=== PATIENT | male | born 1935 | race Caucasian/White ===

== ENCOUNTER → 2020-10-03 | Outpatient (REF) | payer OTHER, BC ==
[~2020-10-03] MED LIST: ADMELOG SO100 UNIT/1 SQ; ALDACTONE 25MG25 M1 PO; APRESOLINE50 MG PO; ASPIRIN E.C. 8181 MG PO; ATROVENT I0.2 MG/1 M IH; CARDURA 2MG2 MG PO; COLACE 100100 MG/CAP PO; CYANOCOBAL1000 MCG/M IM; DESYREL 50MG50 MG PO; DIABETA 5MG5 MG/TAB PO; GLUCOPHAGE850 MG/TAB PO; HUMALOG100 U/ML SQ; HYDRODIURIL50 MG PO; LANTUS100 U/ML SQ; LASIX 40MG TABL40 MG PO; LEVAQUIN 750MG750 M1 PO; LIPITOR 40MG TA40 MG PO; LOPID 600M600 MG/TAB PO; MIRALAX PA17 GM/Dose PO; MUCINEX1200 MG PO; MULTIPLE VITAMI1 TA5 PO; NATURE'S BLEND M3 MG PO; NORVASC 10MG10 MG PO; PRILOSEC 20MG20 MG PO; PROTONIX 40MG T40 MG PO; ZINC OXIDE56.7 GM TP; ZYPREXA 5MG5 MG PO; ZYPREXA2.5 MG PO
[2020-10-03 12:47] LABS: BASO # 0.1 (0.0-0.2); BASO % 0.6 % (0.0-2.0); EOS # 0.2 (0.0-0.7); EOS % 1.8 % (0-4.0); GRAN # 7.6 (1.4-6.5); GRAN % 69.4 % (42.2-75.2); LYMPH # 2.4 (1.2-3.4); LYMPH % 21.4 % (20.0-51.0); MEAN CELL VOLUME 85 fl (80.0-100.0); MEAN CORPUSCULAR HGB CONC 31 g/dl (33.0-37.0); MEAN PLATELET VOLUME 11.8 fl (7.4-10.4); MONO # 0.7 (0.1-0.6); MONO % 6.3 % (1.7-9.3); PLATELET COUNT 299 K/mm3 (130-400); RED BLOOD COUNT 3.54 M/mm3 (4.20-5.60); REDCELL DISTRIBUTION WIDTH-CV 15.3 % (11.5-14.5)
[2020-10-03 12:48] LABS: HEMATOCRIT 30.1 % (42.0-52.0); HEMOGLOBIN 9.2 g/dl (13.5-18.0); MEAN CORPUSCULAR HEMOGLOBIN 26 pg (27.0-31.0)
[2020-10-03 12:53] LABS: CALCIUM 8.2 mg/dL (8.4-10.2); CREATININE, serum 1.75 (0.66-1.25); POTASSIUM 3.7 mmol/L (3.4-5.0)
== END ==
LOC: ZCOL.LAB 12:27
PROVIDERS: Internal Medicine
DX: R30.0 Dysuria (principal); I44.1 Atrioventricular block, second degree; I48.91 Unspecified atrial fibrillation; I50.9 Heart failure, unspecified; D62 Acute posthemorrhagic anemia

== ENCOUNTER 2020-10-12 10:35 | Inpatient (IN) | payer MEDICARE, BC ==
[2020-10-12] VITALS (143 sets, daily range): BP systolic 181; BP diastolic 77; PULSE 85; TEMP 98.1; O2SAT 73–100
[~2020-10-12] VITALS: Ht 177.8 cm; Wt 90.4 kg
[2020-10-12 11:06] LABS: BASO % 0.4 % (0.0-2.0); EOS # 0.2 (0.0-0.7); EOS % 2.1 % (0-4.0); GRAN # 6.3 (1.4-6.5); GRAN % 70.1 % (42.2-75.2); LYMPH # 1.7 (1.2-3.4); LYMPH % 18.5 % (20.0-51.0); MEAN CELL VOLUME 85 fl (80.0-100.0); MEAN CORPUSCULAR HGB CONC 30 g/dl (33.0-37.0); MEAN PLATELET VOLUME 11.1 fl (7.4-10.4); MONO # 0.8 (0.1-0.6); MONO % 8.5 % (1.7-9.3); PLATELET COUNT 217 K/mm3 (130-400); RED BLOOD COUNT 3.51 M/mm3 (4.20-5.60); REDCELL DISTRIBUTION WIDTH-CV 15.7 % (11.5-14.5)
[2020-10-12 11:07] LABS: HEMATOCRIT 29.8 % (42.0-52.0); HEMOGLOBIN 8.9 g/dl (13.5-18.0); MEAN CORPUSCULAR HEMOGLOBIN 25 pg (27.0-31.0)
[2020-10-12 11:13] LABS: INR 1.3 (0.8-3.0); PROTHROMBIN TIME 14.5 SECONDS (9.7-12.8)
[2020-10-12 11:16] LABS: ALBUMIN 3.1 gm/dL (3.5-5.0); BILIRUBIN,TOTAL 0.3 mg/dL (0.0-1.0); CALCIUM 8.1 mg/dL (8.4-10.2); CREATININE, serum 1.93 (0.66-1.25); POTASSIUM 3.3 mmol/L (3.4-5.0); TOTAL PROTEIN 6.2 gm/dL (6.4-8.2)
[2020-10-12 11:29] LABS: TROPONIN-I 2.38 ng/mL (0.000-0.035)
[2020-10-12 11:57] LABS: ARTERIAL BLD GAS O2 SATURATION 93.9 % (92-100); ARTERIAL BLD GAS TCO2 CT 23.8; ARTERIAL BLOOD GAS BASE EXCESS -1.3 (-2-2); ARTERIAL BLOOD GAS HCO3 22.7 meq/L (22-26); ARTERIAL BLOOD GAS PCO2 35.4 mmHg (35-45); ARTERIAL BLOOD GAS PO2 72.2 mmHg (80-100); ARTERIAL BLOOD GAS pH 7.43 (7.35-7.45)
[2020-10-12 12:08] LABS: COLLECTION METHOD CLEAN CATCH
[2020-10-12 12:14] LABS: PH 5 (5-8); SQUAMOUS EPITHELIAL None Seen /hpf; URINE APPEARANCE Clear; URINE BACTERIA None Seen /hpf; URINE BILIRUBIN Negative (NEGATIVE); URINE BLOOD Negative (NEGATIVE); URINE COLOR Yellow; URINE GLUCOSE Negative (NEGATIVE); URINE KETONE Negative (NEGATIVE); URINE LEUKOCYTE ESTERASE Negative (NEGATIVE); URINE NITRATE Negative (NEGATIVE); URINE PROTEIN(semi-quant) Negative (NEGATIVE); URINE RBC 0-2 /hpf; URINE UROBILINOGEN Negative (NEGATIVE)
[2020-10-12] MEDS ORDERED: MUCINEX1200 MG PO (13:57)
[2020-10-12] MEDS ORDERED: COLACE 100100 MG/CAP PO (13:57)
[2020-10-12] MEDS ORDERED: ALDACTONE 25MG25 M1 PO (13:57)
[2020-10-12] MEDS ORDERED: APRESOLINE50 MG PO (13:58)
[2020-10-12] MEDS ORDERED: CARDURA 2MG2 MG PO (13:58)
[2020-10-12] MEDS ORDERED: ZYPREXA 5MG5 MG PO (13:58)
[2020-10-12] MEDS ORDERED: ADMELOG SO100 UNIT/1 SQ (13:58)
[2020-10-12] MEDS ORDERED: LASIX 40MG TABL40 MG PO (13:58)
[2020-10-12] MEDS ORDERED: DESYREL 50MG50 MG PO (13:58)
[2020-10-12] MEDS ORDERED: ASPIRIN E.C. 8181 MG PO (13:59)
[2020-10-12] MEDS ORDERED: NATURE'S BLEND M3 MG PO (13:59)
[2020-10-12] MEDS ORDERED: PROTONIX 40MG T40 MG PO (13:59)
[2020-10-12] MEDS ORDERED: ZYPREXA2.5 MG PO (13:59)
[2020-10-12] MEDS ORDERED: LIPITOR 40MG TA40 MG PO (13:59)
--- NOTE | 2020-10-12 14:22 | NUR ---
Initial visit; Patient and his in Emergency Services. Patient requested prayer. [id number] Analyst offered comfort and prayer for Hitesh and Daniela.
[2020-10-12] MEDS ORDERED: LANTUS100 U/ML SQ (16:02)
[2020-10-12] MEDS ORDERED: HUMALOG100 U/ML SQ (16:02)
[2020-10-12] MEDS ORDERED: ZINC OXIDE56.7 GM TP (16:03)
--- NOTE | 2020-10-12 18:00 | NUR ---
NOTIFIED DR. PRATT OF [facility] AND OF PATIENT'S COMPLAINTS OF MUSCLE SPASMS. ORDERS RECEIVED.
[2020-10-12] MEDS ORDERED: LEVAQUIN 750MG750 M1 PO (18:12)
[2020-10-12] MEDS ORDERED: MIRALAX PA17 GM/Dose PO (18:13)
[2020-10-12] MEDS ORDERED: MULTIPLE VITAMI1 TA5 PO (18:14)
[2020-10-12] MEDS ORDERED: ATROVENT I0.2 MG/1 M IH (18:17)
--- NOTE | 2020-10-12 20:00 | NUR ---
Assessment complete. Pt is AXO X3. He is lying in bed and moaning upon entering the room the pt denies having any pain. Pt repositioned in bed for comfort. Pt states he feels anxious. NAVEEN Stoner, notified. Pt is now resting in bed and he denies further needs. Call light within reach.
[2020-10-13] VITALS (653 sets, daily range): BP systolic 108–179; BP diastolic 39–92; PULSE 56–107; TEMP 97.7–99; O2SAT 48–100
[2020-10-13 02:04] LABS: CALCIUM 8.2 mg/dL (8.4-10.2); CREATININE, serum 1.74 (0.66-1.25); MAGNESIUM 1.9 mg/dL (1.6-2.3); POTASSIUM 4.2 mmol/L (3.4-5.0)
[2020-10-13 06:07] LABS: BASO % 0.4 % (0.0-2.0); EOS # 0.1 (0.0-0.7); EOS % 0.6 % (0-4.0); GRAN # 7.8 (1.4-6.5); GRAN % 71.9 % (42.2-75.2); LYMPH # 1.7 (1.2-3.4); LYMPH % 15.6 % (20.0-51.0); MEAN CELL VOLUME 86 fl (80.0-100.0); MEAN CORPUSCULAR HGB CONC 30 g/dl (33.0-37.0); MEAN PLATELET VOLUME 11.3 fl (7.4-10.4); MONO # 1.2 (0.1-0.6); PLATELET COUNT 206 K/mm3 (130-400); RED BLOOD COUNT 3.69 M/mm3 (4.20-5.60); REDCELL DISTRIBUTION WIDTH-CV 15.7 % (11.5-14.5)
[2020-10-13 06:12] LABS: HEMATOCRIT 31.9 % (42.0-52.0); HEMOGLOBIN 9.4 g/dl (13.5-18.0); MEAN CORPUSCULAR HEMOGLOBIN 25 pg (27.0-31.0)
[2020-10-13 06:23] LABS: IRON,SERUM 21 ug/dL (35-150)
[2020-10-13 06:25] LABS: ALBUMIN 3.2 gm/dL (3.5-5.0); BILIRUBIN,TOTAL 0.4 mg/dL (0.0-1.0); CALCIUM 7.9 mg/dL (8.4-10.2); CREATININE, serum 1.8 (0.66-1.25); MAGNESIUM 2.9 mg/dL (1.6-2.3); POTASSIUM 4.2 mmol/L (3.4-5.0); TOTAL PROTEIN 6.3 gm/dL (6.4-8.2)
[2020-10-13 06:32] LABS: TOTAL IRON BINDING CAPACITY 268 ug/dL (261-462)
[2020-10-13 06:42] LABS: TROPONIN-I 2.14 ng/mL (0.000-0.035)
--- NOTE | 2020-10-13 07:30 | NUR ---
Bedside shift report given to EMILY Vyas.
[2020-10-13 10:04] LABS: GLUCOSE,PLEURAL FLUID 152 mg/dL; PLEURAL FLUID RBC 0 /mm3 (0-0); PLEURAL FLUID WBC 91 /mm3; TOTAL PROTEIN,PLEURAL FLUID < 2.0 gm/dL
[2020-10-13 10:08] LABS: PLEURAL FLUID APPEARANCE CLEAR; PLEURAL FLUID COLOR YELLOW
--- NOTE | 2020-10-13 12:32 | NUR ---
Follow-up; Patient on vent, with eyes closed. looked in on Pal several times and found him to be the same. spoke with his Daniela and offered empathy and [employer] availability. She thanked .
[2020-10-13 16:26] LABS: FOLATE (FOLIC ACID) 15.2 ng/mL (2.0-20.0)
[2020-10-13 18:18] LABS: ARTERIAL BLD GAS O2 SATURATION 96.8 % (92-100); ARTERIAL BLD GAS TCO2 CT 24.2; ARTERIAL BLOOD GAS BASE EXCESS -3.5 (-2-2); ARTERIAL BLOOD GAS HCO3 22.7 meq/L (22-26); ARTERIAL BLOOD GAS PO2 95.1 mmHg (80-100); ARTERIAL BLOOD GAS pH 7.31 (7.35-7.45)
[2020-10-13 21:02] LABS: ARTERIAL BLD GAS O2 SATURATION 96.6 % (92-100); ARTERIAL BLD GAS TCO2 CT 26.9; ARTERIAL BLOOD GAS BASE EXCESS -0.3 (-2-2); ARTERIAL BLOOD GAS HCO3 25.4 meq/L (22-26); ARTERIAL BLOOD GAS PCO2 46.5 mmHg (35-45); ARTERIAL BLOOD GAS PO2 90.4 mmHg (80-100); ARTERIAL BLOOD GAS pH 7.36 (7.35-7.45)
[2020-10-14] VITALS (697 sets, daily range): BP systolic 100–123; BP diastolic 38–72; PULSE 58–76; TEMP 97.7–98.7; O2SAT 33–100
[2020-10-14 01:53] LABS: BODY FLUID PH (AMS) 8 (())
[2020-10-14 05:17] LABS: BASO % 0.4 % (0.0-2.0); EOS # 0.1 (0.0-0.7); EOS % 1.4 % (0-4.0); GRAN # 5.1 (1.4-6.5); GRAN % 67.1 % (42.2-75.2); LYMPH # 1.6 (1.2-3.4); LYMPH % 20.9 % (20.0-51.0); MEAN CELL VOLUME 87 fl (80.0-100.0); MEAN CORPUSCULAR HGB CONC 29 g/dl (33.0-37.0); MONO # 0.8 (0.1-0.6); MONO % 9.8 % (1.7-9.3); PLATELET COUNT 190 K/mm3 (130-400); RED BLOOD COUNT 3.37 M/mm3 (4.20-5.60); REDCELL DISTRIBUTION WIDTH-CV 15.7 % (11.5-14.5)
[2020-10-14 05:24] LABS: HEMATOCRIT 29.2 % (42.0-52.0); HEMOGLOBIN 8.4 g/dl (13.5-18.0); MEAN CORPUSCULAR HEMOGLOBIN 25 pg (27.0-31.0)
[2020-10-14 05:31] LABS: CALCIUM 8.2 mg/dL (8.4-10.2); CREATININE, serum 2.3 (0.66-1.25); MAGNESIUM 2.2 mg/dL (1.6-2.3); POTASSIUM 4.1 mmol/L (3.4-5.0)
[2020-10-14 05:40] LABS: ARTERIAL BLD GAS O2 SATURATION 96.7 % (92-100); ARTERIAL BLD GAS TCO2 CT 27.3; ARTERIAL BLOOD GAS HCO3 25.8 meq/L (22-26); ARTERIAL BLOOD GAS PCO2 47.3 mmHg (35-45); ARTERIAL BLOOD GAS PO2 94.4 mmHg (80-100); ARTERIAL BLOOD GAS pH 7.36 (7.35-7.45)
--- NOTE | 2020-10-14 07:35 | NUR ---
RECEIVED REPORT FROM EMILY HARRISON. PATIENT ON BIPAP AND RESTING. MARQUES PATENT, DRAINING TO GRAVITY, FREE OF DEPENDENT LOOPS OR KINKS. VSS. NIKO PICC IN PLACE, PATENT WITH GOOD BLOOD RETURN. STILL IN LASIX AND PRECEDEX. SEE GTT TITRATION FLOWSHEET. CALL LIGHT WITHIN REACH.
--- NOTE | 2020-10-14 08:25 | NUR ---
DR. VARGAS AT BEDSIDE. WANTING TO DO THORACENTESIS TODAY AROUND 0850. SETTING UP EQUIPMENT AND WILL COMMENCE.
--- NOTE | 2020-10-14 09:00 | NUR ---
WAS NOTIFIED BY EMILY VASQUEZ THAT RADIOLOGY HAD CALLED TO PERFORM THORACENTESIS FOR THIS MORNING @ 1000. ADVISED TO CALL DR. VARGAS TO SEE IF HE WOULD ALLOW RADIOLOGY TO PERFORM OR IF HE WOULD RATHER DO IT.
--- NOTE | 2020-10-14 09:50 | NUR ---
ADVISED JADIEL WHILE AT BEDSIDE THAT WOULD BE IN AT 1100 FOR CONSULT.
--- NOTE | 2020-10-14 10:27 | NUR ---
DR. PRATT AT BEDSIDE. DISCUSSED PLAN OF CARE AND SPEECH THERAPY CONSULT TO BE ORDERED POST THORACENTESIS. WILL PLACE ORDERS.
[2020-10-14 12:40] LABS: PLEURAL FLUID RBC 1000 /mm3 (0-0); PLEURAL FLUID WBC 91 /mm3
[2020-10-14 12:52] LABS: PLEURAL FLUID APPEARANCE CLEAR; PLEURAL FLUID COLOR YELLOW
[2020-10-14 12:56] LABS: GLUCOSE,PLEURAL FLUID 140 mg/dL
[2020-10-14 13:01] LABS: TOTAL PROTEIN,PLEURAL FLUID < 2.0 gm/dL
--- NOTE | 2020-10-14 13:03 | NUR ---
Follow-up visit; Patient fully awoke and squeezed Manager Customer's hand when she let him know she was there. Manager Customer offered a prayer/blessing for Pal and offered God's blessings and hopes for recovery.
--- NOTE | 2020-10-14 13:53 | NUR ---
Vice President Sales contacted patient's , Daniela (cell#[phone]) to discuss discharge planning. Patient is from [place], however has been staying at [facility] for a skilled stay. Daniela is firm that patient will not return to [facility] as she is not satisfied with patient's care. Daniela is especially frustrated that she was not allowed to visit patient during meal times. Patient's primary care physician is Dr. Gongora. Patient has Advance Directives in EMR which designate his , Daniela and son, Bell. Daniela is agreeable to have additional referrals sent if patient still needs rehab. SW reviewed patient's PT note which recommends SNF. Daniela' preferences are 1) [facility] in [place] and 2) [facility] in [place]. SW faxed referrals and left a message for Arlene at [place]. ALAN contacted Izabela at [facility] to provide update. Izabela advised he was in their facility from 09/24/20-10/12/20. Discharge Plan: Awaiting screens from [facility] and [facility]
--- NOTE | 2020-10-14 15:10 | NUR ---
SHELBY WITH SPEECH THERAPY AT BEDSIDE FOR CONSULT.
--- NOTE | 2020-10-14 19:05 | NUR ---
Received report from EMILY Hobbs.
--- NOTE | 2020-10-14 20:00 | NUR ---
Patient resting quietly in bed. Answers all orientation questions appropriately. Continues to receive precedex drip at 0.3 mcg/kg/hr (7.5mL/hr). Receiving 5L oxygen via oxymask with sats 98-100%; oxygen titrated to 3L, and eventually to 2L. Patient tolerating well with sats maintaining > 95%. RT, Jordan, notified. Patient observed to have difficulty swallowing nectar-thick liquids when pills administered, but no coughing or choking noted. PRN fentanyl administered for left leg pain rated 5/10. Patient bathed and repositioned; bed in lowest position, and all alarms on. Call light within reach. No further needs noted.
[2020-10-15] VITALS (450 sets, daily range): BP systolic 100–150; BP diastolic 50–63; PULSE 64–98; TEMP 97.4–99.1; O2SAT 52–100
[2020-10-15 00:04] LABS: BODY FLUID PH (AMS) 8 (())
[2020-10-15 05:36] LABS: BASO # 0.1 (0.0-0.2); BASO % 0.6 % (0.0-2.0); EOS # 0.2 (0.0-0.7); EOS % 2.5 % (0-4.0); GRAN % 67.6 % (42.2-75.2); LYMPH % 22.7 % (20.0-51.0); MEAN CELL VOLUME 84 fl (80.0-100.0); MEAN CORPUSCULAR HGB CONC 30 g/dl (33.0-37.0); MEAN PLATELET VOLUME 11.6 fl (7.4-10.4); MONO # 0.5 (0.1-0.6); MONO % 6.1 % (1.7-9.3); PLATELET COUNT 204 K/mm3 (130-400); RED BLOOD COUNT 3.36 M/mm3 (4.20-5.60); REDCELL DISTRIBUTION WIDTH-CV 15.8 % (11.5-14.5)
[2020-10-15 05:45] LABS: HEMATOCRIT 28.3 % (42.0-52.0); HEMOGLOBIN 8.5 g/dl (13.5-18.0); MEAN CORPUSCULAR HEMOGLOBIN 25 pg (27.0-31.0)
[2020-10-15 05:47] LABS: CALCIUM 7.8 mg/dL (8.4-10.2); CREATININE, serum 2.56 (0.66-1.25); MAGNESIUM 2.2 mg/dL (1.6-2.3); POTASSIUM 3.7 mmol/L (3.4-5.0)
--- NOTE | 2020-10-15 07:45 | NUR ---
Report given to EMILY Hernández.
--- NOTE | 2020-10-15 11:30 | NUR ---
Call placed to Dr. Sheppard to request PO pain medication for left leg spasms. Order received for Percocet, see eMAR
--- NOTE | 2020-10-15 16:02 | NUR ---
Patient transferred up to room 353, report given to EMILY Guidry
--- NOTE | 2020-10-15 16:33 | NUR ---
Patient Registration Clerk faxed clinical updates to [facility] and [facility]. ALAN spoke with Arlene at [facility] who advised their DON is still reviewing the referral. ALAN provided skilled days patient used at [facility]. Arlene asked if patient had COVID vaccines. ALAN then contacted Taty at [facility] and left a message. ALAN contacted patient's , Daniela to provide update. Daniela advised that patient has had both of his COVID shots about three months ago. Discharge Plan: Awaiting screens from [facility] and [place] [facility].
--- NOTE | 2020-10-15 16:53 | NUR ---
PT ARRIVED TO ROOM 353 AT 1535. ORIENTED PT AND TO ROOM. MED REC UPDATED. ASSESSED PT. LOWER LUNG SOUNDS COARSE CRACKLES. GENERALIZED SCABS AND BRUISING TO BODY. WOUND AND BRUISING TO HEAD, STERI STRIPS PLACED OVER SMALL AREA ON LEFT EYEBROW. FOLLOWS COMMANDS, UNABLE TO LIFT OR MOVE LEGS AND FEET. IV TO LEFT WRIST INFILTRATED AND WAS REMOVED. OCCASIONALLY MOANS AND GRABS LEFT HIP. PHARMACY CALLED TO BRING PRESCRIBED MUSCLE RUB CREAM. REPORTS A HEADACHE, TYLENOL GIVEN PER ORDERS. MARQUES CATHETER IN PLACE WITH CLEAR YELLOW OUTPUT. UNSTAGABLE PRESSURE ULCER TO COCCYX, SMALL AREAS OF BLEEDING, ZINC OXIDIE OINTMENT APPLIED AND NEW DRESSING APPLIED.
[2020-10-15] MEDS ORDERED: NORVASC 10MG10 MG PO (17:58)
[2020-10-15] MEDS ORDERED: DIABETA 5MG5 MG/TAB PO (17:59)
[2020-10-15] MEDS ORDERED: HYDRODIURIL50 MG PO (18:00)
[2020-10-15] MEDS ORDERED: LOPID 600M600 MG/TAB PO (18:02)
[2020-10-15] MEDS ORDERED: CYANOCOBAL1000 MCG/M IM (18:03)
[2020-10-15] MEDS ORDERED: GLUCOPHAGE850 MG/TAB PO (18:04)
[2020-10-15] MEDS ORDERED: PRILOSEC 20MG20 MG PO (18:04)
--- NOTE | 2020-10-16 00:16 | NUR ---
Patient assessed around 2129. Alert, does not answer questions appropriately. High fall risk precautions in place. PICC to RUE. Denies having SOB and dyspnea. On oxygen at 2 L/min via OM. LS CTA in upper lobes, diminished in lower. Respirations even and unlabored. HRI. Telemetry in place. BSAx4. Indwelling bowling catheter patent, clear yellow urine. Bruising/skin tears/abraisions to left head/face/arm/leg. Dressing to ulcer on coccyx CDI. Excoriation to groing/abd folds. Cream applied. Resting in bed with call light within reach.
--- NOTE | 2020-10-16 00:51 | NUR ---
Patient complaining of pain during repositioning. Given PRN Percocet as requested for pain at this time.
[2020-10-16 03:38] VITALS: BP 155/44; PULSE 77; TEMP 97.9
--- NOTE | 2020-10-16 05:59 | NUR ---
Patient has received PRN Percocet for pain as requested during the night. See MAR. States that right leg hurts, as well as back. Staff assisted with repositioning in the bed. Voices no further questions, needs, or concerns at this time. Indwelling bowling catheter patent. On oxygen at 2 L/min via oxymask. Continues on IV ABXs per orders. Resting in bed with call light within reach. High fall risk precautions in place.
[2020-10-16 07:06] LABS: CALCIUM 7.7 mg/dL (8.4-10.2); CREATININE, serum 2.31 (0.66-1.25); MAGNESIUM 2.3 mg/dL (1.6-2.3); POTASSIUM 3.4 mmol/L (3.4-5.0)
[2020-10-16 07:08] LABS: BASO # 0.1 (0.0-0.2); BASO % 0.8 % (0.0-2.0); EOS # 0.3 (0.0-0.7); EOS % 3.2 % (0-4.0); GRAN # 5.5 (1.4-6.5); GRAN % 62.4 % (42.2-75.2); HEMOGLOBIN 8.7 g/dl (13.5-18.0); LYMPH # 2.2 (1.2-3.4); LYMPH % 24.8 % (20.0-51.0); MEAN CELL VOLUME 84 fl (80.0-100.0); MEAN CORPUSCULAR HEMOGLOBIN 25 pg (27.0-31.0); MEAN CORPUSCULAR HGB CONC 30 g/dl (33.0-37.0); MEAN PLATELET VOLUME 11.6 fl (7.4-10.4); MONO # 0.7 (0.1-0.6); MONO % 8.2 % (1.7-9.3); PLATELET COUNT 228 K/mm3 (130-400); RED BLOOD COUNT 3.49 M/mm3 (4.20-5.60); REDCELL DISTRIBUTION WIDTH-CV 15.9 % (11.5-14.5)
[2020-10-16 07:09] LABS: HEMATOCRIT 29.2 % (42.0-52.0)
[2020-10-16 07:12] VITALS: BP 176/67; PULSE 73; TEMP 97.6
--- NOTE | 2020-10-16 11:05 | NUR ---
Pt assessment completed and charted, meds administered crushed in applesauce w/o issue per jun. Pt c/o pain to coccyx,pain medication adminsitered per mar PRN and pt repostioned w/pillow to rt side. New mepilex applied to coccyx, cdi. Barrier cream applied to abd folds. Stewart in place to ddd. Pt on 3L oxymask while sleeping, NC while eating. Pt has scattered bruising and abrasions documented. NIKO PICC in place, both ports flush well w/ good blood return. No further concerns expressed.
[2020-10-16 11:21] VITALS: BP 155/53; PULSE 61; TEMP 97.4
[2020-10-16 14:52] VITALS: BP 171/89; PULSE 92
--- NOTE | 2020-10-16 15:42 | NUR ---
Taty with [facility] left message for this Nuclear Plant Operator regarding acceptance for the patient. She reports that the earliest [facility] can take the patient for SNF is on Monday, 10/20. ALAN attempted to contact Taty, left message. ALAN contacted [facility] and they are still reviewing the referral. *Discharge disposition: SNF.
--- NOTE | 2020-10-16 18:23 | NUR ---
Patient resting in bed with oxymask and tolerating well. at the bedside and assisting with feeds and some ADL's. IV CDI. VSS 4L O2 oxymask. Reporting pain in legs/back, pain medication given when requested. Stewart dependent drainage. Call llight within reach. Bed alarm on
[2020-10-16 19:27] VITALS: BP 155/56; PULSE 52; TEMP 97.4
--- NOTE | 2020-10-16 20:22 | NUR ---
Patient assessed around 2009. Alert with disorientation at times. Does show outward s/sx of pain and discomfort when moved, such as facial grimacing, moaning, and rubbing of left leg. Muscle rub cream applied. PICC to RUE flushed. LS coarse crackles upper lobes, diminished lower lobes. Respirations even and unlabored. On oxygen at 4 L/min via oxymask at this time. HRI. Telemetry in place: A-fib. Capillary refill less than 3 seconds. Non-tenting skin turgor. BS hypoactivex4. Abdomen soft and non-tender. Indwelling bowling catheter patent, and draining clear yellow urine via dependent drainage. No edema. Scabs to left face, BLE, bilateral feet. Abraision to left face, elbow. Excoration to abdominal and groin folds. Pressure ulcer to coccyx, mepilex CDI. Resting in bed with call light within reach. High fall risk precautions in place.
--- NOTE | 2020-10-17 00:33 | NUR ---
At approximately 2200, patient aggitated with staff, complaining of pain. Given PRN Ativan, as well as PRN Oxycodone for pain. Patient resting at this time. Did not complain of pain when repositioned at this time.
[2020-10-17 01:11] VITALS: BP 171/68; PULSE 84
--- NOTE | 2020-10-17 05:28 | NUR ---
Patient seems to behaving increased aggitation tonight. Keeps taking off oxymask. Needs frequent reminders to wear it to help him, but gets upset with staff. Given PRN Ativan once this shift. Has been having increased complaints of pain to left hip area. Repositioned frequently in bed, but does not seem to help. Has been given PRN Oxycodone per orders. Patient continues to have s/sx of pain: yelling out/moaning, rubbing left hip, facial grimacing at rest, and increased symptoms with movement. Given PRN Morphine for pain at this time. Continues on IV ABXs per orders. Continues on oxygen at 5 L/min via oxymask. Crackles continue in upper lobes, diminished in lower. Resting in bed with call light within reach. High fall risk precautions in place.
[2020-10-17 06:54] LABS: BASO # 0.1 (0.0-0.2); BASO % 0.5 % (0.0-2.0); EOS # 0.5 (0.0-0.7); EOS % 4.2 % (0-4.0); GRAN # 6.5 (1.4-6.5); GRAN % 60.1 % (42.2-75.2); LYMPH # 2.9 (1.2-3.4); LYMPH % 27.2 % (20.0-51.0); MEAN CELL VOLUME 84 fl (80.0-100.0); MEAN CORPUSCULAR HGB CONC 30 g/dl (33.0-37.0); MEAN PLATELET VOLUME 11.9 fl (7.4-10.4); MONO # 0.8 (0.1-0.6); MONO % 7.4 % (1.7-9.3); PLATELET COUNT 235 K/mm3 (130-400); RED BLOOD COUNT 3.67 M/mm3 (4.20-5.60); REDCELL DISTRIBUTION WIDTH-CV 16.1 % (11.5-14.5)
[2020-10-17 06:57] LABS: HEMATOCRIT 30.9 % (42.0-52.0); HEMOGLOBIN 9.3 g/dl (13.5-18.0); MEAN CORPUSCULAR HEMOGLOBIN 25 pg (27.0-31.0)
--- NOTE | 2020-10-17 07:00 | NUR ---
UPON ENTRY TO ROOM, PT WAS YELLING OUT WITHOUT HIS OXYMASK ON. THIS RN CHECKED VITAL SIGNS AND PT WAS SATURATING AT 64%. OXYMASK REPLACED, AND PT PLACED ON 5L O2. WILL CONTINUE TO MONITOR.
[2020-10-17 07:12] LABS: CALCIUM 8.2 mg/dL (8.4-10.2); MAGNESIUM 2.3 mg/dL (1.6-2.3); POTASSIUM 3.8 mmol/L (3.4-5.0)
[2020-10-17 08:00] VITALS: BP 183/74; PULSE 80; TEMP 97.6
[2020-10-17 11:27] VITALS: BP 177/79; PULSE 74; TEMP 97.9
[2020-10-17 17:21] VITALS: BP 137/92; PULSE 41; TEMP 96.7
[2020-10-17 19:46] VITALS: BP 163/59; PULSE 77; TEMP 97.2
--- NOTE | 2020-10-17 22:02 | NUR ---
Patient assessed around 2114. Alert, and able to answer some questions tonight, but still has some confusion. Has taken off oxygen once this shift, and SPO2 was 74% at that time. Put oxygen back on patient at 12 L/min via OM. Explained to patient about oxygen, and showed him the dynamap with the oxygen levels. Patient has been keeping oxygen on since then, and voiced undestanding of needing oxygen. Patient did complain of pain to bottom/left hip. Repositioned in bed. Staff to continue with repositioning every two hours. PICC to [facility]. Continues on IV ABXs per orders. Received IV Lasix per orders. Indwelling bowling catheter patent, and draining clear yellow urine via dependent drainage. Patient with coarse crackles, and occasional moist cough, unable to observe sputum. LS diminished in bases. Respirations labored when first off oxygen, but became even and unlabored with oxygen on after 10 minutes. HRI. Telemetry in place. Capillary refill less than 3 seconds. non-tenting skin turgor. BSAx4. Abdomen soft and non-tender. No edema noted. Mepilex to coccyx CDI. Exoration surrounding mepilex, as well as in groin and abdominal folds. Perineal hygiene and catheter care provided. Heels boggy, no open areas noted. Floated on pillows. Resting in bed with call light within reach. High fall risk precautions remain in place. Bed alarm on.
[2020-10-17 23:25] VITALS: BP 156/56; PULSE 89; TEMP 98.3
[2020-10-18 03:39] VITALS: BP 165/60; PULSE 94; TEMP 97.9
--- NOTE | 2020-10-18 05:53 | NUR ---
Staff assisted with repositioning every 1.5-2 hours during the night. Patient complained frequently of pain to bottom and hip. Repositioning helped some, as well as ice to hip, and APAP. Continues on oxygen at 15 L/min via oxymask. Has done better with keep oxygen on this shift, but has taken it off 3 times that this nurse is aware of. Oxygen levels were in the 70s each time it was taken off. This nurse showed patient oxygen levels on dynamap at those times, and would allow this nurse to put oxygen back on after explaining his oxygen levels to him. LS continue to have coarse crackles in upper lobes, diminished in lower lobes. Resting in bed with call light within reach. High fall risk precautions remain in place.
[2020-10-18 06:31] LABS: BASO # 0.1 (0.0-0.2); BASO % 0.4 % (0.0-2.0); EOS # 0.3 (0.0-0.7); EOS % 2.7 % (0-4.0); GRAN # 7.9 (1.4-6.5); GRAN % 67.8 % (42.2-75.2); LYMPH # 2.4 (1.2-3.4); LYMPH % 20.3 % (20.0-51.0); MEAN CELL VOLUME 85 fl (80.0-100.0); MEAN CORPUSCULAR HGB CONC 29 g/dl (33.0-37.0); MEAN PLATELET VOLUME 11.3 fl (7.4-10.4); MONO % 8.2 % (1.7-9.3); PLATELET COUNT 247 K/mm3 (130-400); RED BLOOD COUNT 3.82 M/mm3 (4.20-5.60)
[2020-10-18 06:37] LABS: HEMATOCRIT 32.3 % (42.0-52.0); HEMOGLOBIN 9.5 g/dl (13.5-18.0); MEAN CORPUSCULAR HEMOGLOBIN 25 pg (27.0-31.0)
[2020-10-18 06:45] LABS: CALCIUM 8.7 mg/dL (8.4-10.2); CREATININE, serum 1.96 (0.66-1.25); POTASSIUM 3.8 mmol/L (3.4-5.0)
--- NOTE | 2020-10-18 07:22 | NUR ---
PT SLEEPING AT THIS TIME.
[2020-10-18 08:27] VITALS: BP 155/87; PULSE 65; TEMP 97.4
[2020-10-18 11:44] VITALS: BP 147/47; PULSE 77; TEMP 97.8
--- NOTE | 2020-10-18 12:36 | NUR ---
SW met with family about Hospice Care, reports that she expressed to the doctor that she wanted to wait two days and then make a decision. Nothing follows.
--- NOTE | 2020-10-18 14:52 | NUR ---
PT HAD REPORTED PT TOOK OFF OXYGEN AND COULD NOT FIND OXYGEN MASK, ENTERED ROOM AND PLACED MASK BACK ON PT, PT O2 AT 78%, AFTER ABOUT 10MIN PT SATTING 90% ON 15L. PT NURSE UPDATED.
[2020-10-18 16:29] VITALS: BP 178/85; PULSE 72; TEMP 97.7
[2020-10-18 20:47] VITALS: BP 187/68; PULSE 88; TEMP 97.3
[2020-10-19] VITALS (281 sets, daily range): BP systolic 105–189; BP diastolic 51–81; PULSE 36–101; TEMP 97.1–98.2; O2SAT 61–100
--- NOTE | 2020-10-19 05:23 | NUR ---
SPOKE WITH JOSE MARTINEZN REGARDING PATIENT'S B/P AND PO2 NEW ORDERS RECEIVED
--- NOTE | 2020-10-19 07:16 | NUR ---
PT REFUSED SVN. AIRVO FIO2 91% 60LPM SPO2 90% HR 88. COARSE CRACKLES BS
--- NOTE | 2020-10-19 08:18 | NUR ---
ASSESSMENT COMPLETED. PATIENT IS ALERT AND ORIENTED TO SELF AND LOCATION. LUNG SOUNDS DEMINISHED IN ALL LOBES. HAND WEBSPHERE ADMINISTRATOR STRONG AND EQUAL BILATERIALLY. GENERALIZED SCABS AND BRUISING TO BODY. UNSTAGEABLE PRESSURE ULCER TO COCCYX WITH AREAS OF SKIN BREAKDOWN AND BLEEDING. PT ON AIRVO AT 60L AND 91%. PT DENIES ANY PAIN. CALL LIGHT WITHIN REACH. WILL CONTINUE TO MONITOR.
--- NOTE | 2020-10-19 14:00 | NUR ---
Pt restless and reports his bottom hurts, able to sit on side of bed and stand for short period of time with assistance of one and walker. No dyspnea with exertion. VSS. Call light within reach.
--- NOTE | 2020-10-19 15:46 | NUR ---
Report given to EMILY Hobbs. Pt wheeled down to ICU 6 at this time wearing bipap
[2020-10-19 17:33] LABS: CALCIUM 8.6 mg/dL (8.4-10.2); CREATININE, serum 1.83 (0.66-1.25); POTASSIUM 3.9 mmol/L (3.4-5.0)
[2020-10-19 17:43] LABS: ARTERIAL BLD GAS O2 SATURATION 85.7 % (92-100); ARTERIAL BLD GAS TCO2 CT 25.5; ARTERIAL BLOOD GAS BASE EXCESS 1.2 (-2-2); ARTERIAL BLOOD GAS HCO3 24.5 meq/L (22-26); ARTERIAL BLOOD GAS PCO2 34.2 mmHg (35-45); ARTERIAL BLOOD GAS PO2 49.5 mmHg (80-100); ARTERIAL BLOOD GAS pH 7.47 (7.35-7.45)
--- NOTE | 2020-10-19 20:00 | NUR ---
PATIENT HAS PULLED MITTS OFF AIR VOW REMOVED, ATTEMPTING TO GET OUT OF BED, PATIENT UNABLE TO FOLLOW DIRECTION, STEADY AT HIT STAFF PHYSICALLY, MEDS ORDERED AND ADMINISTERED
[2020-10-19 23:09] LABS: ARTERIAL BLD GAS O2 SATURATION 96.6 % (92-100); ARTERIAL BLD GAS TCO2 CT 25.2; ARTERIAL BLOOD GAS BASE EXCESS 0.2 (-2-2); ARTERIAL BLOOD GAS HCO3 24.1 meq/L (22-26); ARTERIAL BLOOD GAS PO2 83.4 mmHg (80-100); ARTERIAL BLOOD GAS pH 7.44 (7.35-7.45)
[2020-10-20] VITALS (633 sets, daily range): O2SAT 78–100
--- NOTE | 2020-10-20 | NUR ---
PATIENT MOVES ABOUT IN BED RESTLESS, NO EYE CONTACT, WAVES MITTS INTO THE AIR,
[2020-10-20 04:45] LABS: ARTERIAL BLD GAS TCO2 CT 26.6; ARTERIAL BLOOD GAS HCO3 25.3 meq/L (22-26); ARTERIAL BLOOD GAS PCO2 43.7 mmHg (35-45); ARTERIAL BLOOD GAS PO2 88.1 mmHg (80-100); ARTERIAL BLOOD GAS pH 7.38 (7.35-7.45)
[2020-10-20 05:41] LABS: HEMOGLOBIN 10.5 g/dl (13.5-18.0); MEAN CELL VOLUME 86 fl (80.0-100.0); MEAN CORPUSCULAR HEMOGLOBIN 26 pg (27.0-31.0); MEAN CORPUSCULAR HGB CONC 30 g/dl (33.0-37.0); MEAN PLATELET VOLUME 11.1 fl (7.4-10.4); PLATELET COUNT 278 K/mm3 (130-400); RED BLOOD COUNT 4.08 M/mm3 (4.20-5.60); REDCELL DISTRIBUTION WIDTH-CV 16.7 % (11.5-14.5)
[2020-10-20 05:45] LABS: HEMATOCRIT 35.1 % (42.0-52.0)
[2020-10-20 05:53] LABS: CALCIUM 8.8 mg/dL (8.4-10.2); CREATININE, serum 2.13 (0.66-1.25); MAGNESIUM 1.9 mg/dL (1.6-2.3); POTASSIUM 4.3 mmol/L (3.4-5.0)
[2020-10-20 06:11] LABS: BAND 11 % (0-10); HYPOCHROMIA 3+; NEUTROPHILS 81 % (42.0-75.2); PLATELET ESTIMATE NORMAL (NORMAL)
[2020-10-20 06:12] LABS: ANISOCYTOSIS 1+; OVALOCYTES 2+; SCHISTOCYTES 2+
--- NOTE | 2020-10-20 12:48 | NUR ---
Met with Daniela Jones in ICU waiting room with Loreta Tong TRAFFIC RATE CLERK. Daniela reports that Pal has gotten much worse and that as soon as her son Bell arrives and can see his father, they will remove the bipap and allow a natural to occur. She reports that their ingot supervisor has just recently visited and she feels that has been very helopful to her . Her son will hopefully be here around 0900 tomorrow. Pt had requested to be DNR and this was respected. While family is very aware that could occur at any time, they will support him u ntil son can arrive. We did speak with Daniela about [facility] if the need for transfer should occur. Support provided.
--- NOTE | 2020-10-20 13:47 | NUR ---
pit crew support worker and Igor, palliative care nurse met with patient's spouse, Daniela and provided support. Daniela stated that she and family do not wish for a ventilator and she is understanding that patient will not survive. Patient's son is traveling from [place] and will arrive to the hospital tomorrow around 9:00am, and then bi pap will be removed to withdraw care. Annette provided information on hospice services if needed. Worker reiterated that medical social worker will help family arrange any further post hospital hospice services if needed. Daniela stated returning home with hospice is not an option rather the hospice house is preferred.
--- NOTE | 2020-10-20 14:26 | NUR ---
Avani Collazo (purnima) [phone] (h) [phone] (c) would like a phone call if the pt passes away in the night. Pt's spouse okay with that
--- NOTE | 2020-10-20 18:15 | NUR ---
Per Inspection Machine Tender: Thoracentesis will not happening today, will call in the morning to set up time
[2020-10-21] VITALS (479 sets, daily range): BP systolic 126; BP diastolic 65; PULSE 79; O2SAT 45–100
[2020-10-21 07:51] LABS: BASO % 0.1 % (0.0-2.0); EOS % 0.4 % (0-4.0); GRAN # 5.2 (1.4-6.5); GRAN % 77.8 % (42.2-75.2); HEMATOCRIT 42.2 % (42.0-52.0); LYMPH # 0.9 (1.2-3.4); LYMPH % 13.8 % (20.0-51.0); MEAN CELL VOLUME 87 fl (80.0-100.0); MEAN CORPUSCULAR HEMOGLOBIN 25 pg (27.0-31.0); MEAN CORPUSCULAR HGB CONC 28 g/dl (33.0-37.0); MEAN PLATELET VOLUME 12.1 fl (7.4-10.4); MONO # 0.5 (0.1-0.6); MONO % 7.6 % (1.7-9.3); PLATELET COUNT 191 K/mm3 (130-400); RED BLOOD COUNT 4.86 M/mm3 (4.20-5.60); REDCELL DISTRIBUTION WIDTH-CV 16.9 % (11.5-14.5)
[2020-10-21 08:04] LABS: CALCIUM 8.8 mg/dL (8.4-10.2); CREATININE, serum 2.61 (0.66-1.25); POTASSIUM 3.8 mmol/L (3.4-5.0)
--- NOTE | 2020-10-21 10:38 | NUR ---
Follow-up visit; Campus Executive Director prayed with Pal, his Daniela and son Bell. Patient aware of Campus Executive Director and family's presence. Campus Executive Director will continue to look in on patient and family.
--- NOTE | 2020-10-21 10:42 | NUR ---
Bell, son, has arrived at bedside along with his mother and advise at this time that they are ready tp proceed with removal of the bipap after speaking with physician. Comfort quilt was provided to patient with explanation to the family. Pt has dry mouth and lips were moistened with washcloth and then moisturizer. Family requested a small sip of water but pt could only tolerate a minimal amount before he began to cough. Support provided and family assisted in moving chair around bed for more comfortable positions. Pt does have eyes open at times and speaks signle words.
--- NOTE | 2020-10-21 13:33 | NUR ---
0950- PT FAMILY REQUEST FOR BIPAP TO BE TAKEN OFF OF PATIENT FOR COMFORT CARE MEASURES THEY HAD DISCUSSED WITH DR. VARGAS JUST [address] Varg[address] and [address]. Armas notifeid of request. Orders for comfort care are received. 1004- RN and RT at bedside to remove PT Bipap. 1330- and son are sitting bedside with PT. PT appears in distress and medication is given as ordered to help alleviate the air hunger. Currenty vitals are 87HR, 77% SPO2, 31 RR, 120-56 BP
--- NOTE | 2020-10-21 19:16 | NUR ---
PT report given to EMILY Daniels.
--- NOTE | 2020-10-21 20:16 | NUR ---
PATIENT HAS SHALLOW BREATHIN RAPID, GRAYING SKIN COLOR, LOW SATS IN 70S, RESPONDS TO PAINFUL STIMULI,
[2020-10-22] VITALS (353 sets, daily range): PULSE 71; O2SAT 44–99
--- NOTE | 2020-10-22 07:25 | NUR ---
Upon entering the patients room is legs were out of bed. PT helped back into bed and repositioned with the assistance of 3 RNs. PT is showing increased work of breathing and air hunger. PT is moaning and yelped a few times. PT is given comfort care medications as ordered, please see eMAR. Will continue to monitor patient to ensure patient appears comfortable.
--- NOTE | 2020-10-22 08:10 | NUR ---
SW called to discuss possible hospice placement for PT.
--- NOTE | 2020-10-22 09:56 | NUR ---
I followed up with family, Daniela and Minnie, this morning to talk with them about moving out of ICU and options for location of care. Loreta Tong and I had talked with Daniela earlier about this and she did not want to take him home and was not very open to longterm placement. She and Bell did agree to look at [facility] and send referral there. I contacted Shannan at [facility] and arranged for Daniela and Bell to tour [facility] later this morning. Referral was sent and this was communicated with Loreta Tong.
--- NOTE | 2020-10-22 10:28 | NUR ---
PT is agitated and moaning for help. ATivan does given early per Dr. Casey.
--- NOTE | 2020-10-22 10:41 | NUR ---
Follow-up visit; Patient seemed to be aware of Relay Engineer's presence when she held his hand and offered prayer and permission to let go and go with God.
--- NOTE | 2020-10-22 11:49 | NUR ---
Plan for pt to transfer to [facility] this afternoon at 2pm. Covid test requested. Loreta Tong will arrange ambulance and family will return to hospice house after an appt in . They have toured the hospice house and requested transfer to there.
--- NOTE | 2020-10-22 12:12 | NUR ---
Patient will transfer to the [facility] this date. Spouse and son toured the facility and are approving of the transfer at 2:00 today. Spouse and son have an appointment now and plan to meet patient at the [facility] [place] later this afternoon. Worker arranged [facility] to transport patient at 2:00 this date to the [facility].
--- NOTE | 2020-10-22 13:53 | NUR ---
This RN was sitting with patient as he began to have long pauses between his breath sounds. At 1255 the heart was auscultated, heart and lung sounds were absent. EMILY Vyas in to confirm. Dr. Casey and familly notified.
--- NOTE | 2020-10-22 14:08 | NUR ---
Call placed to [facility]. Patient is not a candidate for transplant secondary to diagnosis of dementia. Patient may be released to home. requested [facility] be called. took belongings and also gold colored wedding ring from left hand sent home with . 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
--- NOTE | 2020-10-22 14:12 | NUR ---
[facility] Confirmation # [id number]
--- NOTE | 2020-10-22 14:13 | NUR ---
Dr. Gongora called and made aware of patients .
--- NOTE | 2020-10-22 15:36 | NUR ---
Patient . Nursing notified family of patient's . marble worker cancelled the ambulance and notified [facility] of patient's .
--- NOTE | 2020-10-22 16:26 | NUR ---
Mortuary here to poultry picker patients body and left unit at 1542
== END 2020-10-22 15:40 | disposition expired ==
LOC: COL.ER 10:35 → MEDICAL 13:56 → ICU 13:56 → MEDICAL 10-15 15:39 → ICU 10-19 15:21
PROVIDERS: Internal Medicine; Internal Medicine Pulmonary Disease; Physician Assistant; Student in an Organized Health Care Education/Training Program; ADMIT Family Medicine
PROC: 0W993ZZ Drainage of Right Pleural Cavity, Percutaneous Approach (ICD-10-PCS; principal; 2020-10-13)
PROC: 02HV33Z Insertion of Infusion Device into Superior Vena Cava, Percutaneous Approach (ICD-10-PCS; 2020-10-13)
PROC: 0W9B3ZZ Drainage of Left Pleural Cavity, Percutaneous Approach (ICD-10-PCS; 2020-10-14)
PROC: 0W993ZZ Drainage of Right Pleural Cavity, Percutaneous Approach (ICD-10-PCS; 2020-10-19)
DX: I13.0 Hypertensive heart and chronic kidney disease with heart failure and stage 1 through stage 4 chronic kidney disease, or unspecified chronic kidney disease (principal); I21.4 Non-ST elevation (NSTEMI) myocardial infarction; J96.01 Acute respiratory failure with hypoxia; J69.0 Pneumonitis due to inhalation of food and vomit; J90 Pleural effusion, not elsewhere classified; N18.4 Chronic kidney disease, stage 4 (severe); F03.91 Unspecified dementia, unspecified severity, with behavioral disturbance; J98.11 Atelectasis; K21.9 Gastro-esophageal reflux disease without esophagitis; E11.22 Type 2 diabetes mellitus with diabetic chronic kidney disease; E78.5 Hyperlipidemia, unspecified; Z20.828 Contact with and (suspected) exposure to other viral communicable diseases; D64.9 Anemia, unspecified; I25.10 Atherosclerotic heart disease of native coronary artery without angina pectoris; E87.5 Hyperkalemia; E87.70 Fluid overload, unspecified; Z20.822 Contact with and (suspected) exposure to COVID-19; E11.649 Type 2 diabetes mellitus with hypoglycemia without coma; E87.6 Hypokalemia; E83.42 Hypomagnesemia; D63.1 Anemia in chronic kidney disease; G47.00 Insomnia, unspecified; M79.10 Myalgia, unspecified site; R53.81 Other malaise; Z66 Do not resuscitate; Z95.1 Presence of aortocoronary bypass graft; Z79.82 Long term (current) use of aspirin; L89.159 Pressure ulcer of sacral region, unspecified stage; I34.0 Nonrheumatic mitral (valve) insufficiency
CPT/HCPCS: 99223-AI; 99232-AI; 99233-AI; 99239; C1751; J0360; J0692; J1610; J1644; J1815; J1940; J2060; J2270; J2405; J2543; J2704; J3010; J3370; J3475; J3480; J7030; J7050